=== PATIENT | female | born 1965 | race Caucasian/White ===

== ENCOUNTER 2020-12-19 12:02 | Day surgery (SDC) | payer MEDICARE ==
[~2020-12-19 12:02] MED LIST: DIPRIVAN 200 MG/20 ML IV ONE; Ketamine HCl 50 MG/ML ONE
[2020-12-19] MEDS ORDERED: Xylocaine 1% Vial 30 ML PF IJ ONE (12:03)
[2020-12-19] MEDS ORDERED: Sodium Chloride 0.9(Preservative Free) 10 ML IJ ONE (12:03)
[2020-12-19] MEDS ORDERED: Depo-Medrol 40 MG/ML IM ONE (12:03)
--- NOTE | 2020-12-19 13:32 | XRAY ---
Indication: Lumbar CHRISTIANO. Intraoperative fluoroscopy provided for 38 seconds. 2 digital spot images submitted for interpretation demonstrates midline posterior needle tip projecting just posterior to the lumbosacral interspace. Small amount of contrast injected for needle tip placement. Correlate with intraoperative findings/report.
--- NOTE | 2020-12-19 13:45 | XRAY ---
38 seconds fluoroscopy time in surgery for lumbar CHRISTIANO.
[2020-12-19] MEDS ORDERED: Lactated Ringers 1,000 ML IV ONE (16:13)
== END 2020-12-19 13:15 | disposition home or self-care (01) ==
LOC: SDC-PAIN 12:02
PROVIDERS: ATTEND Psychiatry & Neurology Pain Medicine
DX: M54.16 Radiculopathy, lumbar region (principal); J44.9 Chronic obstructive pulmonary disease, unspecified; M81.0 Age-related osteoporosis without current pathological fracture; I10 Essential (primary) hypertension; M79.7 Fibromyalgia; F41.9 Anxiety disorder, unspecified; F32.9 Major depressive disorder, single episode, unspecified; I50.9 Heart failure, unspecified; Z79.899 Other long term (current) drug therapy
CPT/HCPCS: 62323; 72100; 77003; J1030; J2001; J2704; Q9966

== ENCOUNTER 2021-04-17 13:24 | Day surgery (SDC) | payer MEDICARE ==
[2021-04-17] MEDS ORDERED: LIDOCAINE HCL 2% 100 MG/5 ML IJ ONE (13:25)
[2021-04-17] MEDS ORDERED: Depo-Medrol 40 MG/ML IM ONE (13:25)
[2021-04-17] MEDS ORDERED: DIPRIVAN 200 MG/20 ML IV ONE (14:53)
[2021-04-17] MEDS ORDERED: Lactated Ringers 1,000 ML IV ONE (15:35)
--- NOTE | 2021-04-17 16:52 | XRAY ---
Indication: Bilateral L4-S1 MBB. Intraoperative fluoroscopy provided for 14 seconds. Single digital spot image submitted for interpretation demonstrates posterior needle tips projecting over the expected left and right L4-S1 nerve roots. Correlate with intraoperative findings/report.
--- NOTE | 2021-04-17 17:10 | XRAY ---
14 seconds of fluoroscopy was used in surgery for a bilateral L4-L5 and L5-S1 MBB.
== END 2021-04-17 15:15 | disposition home or self-care (01) ==
LOC: SDC-PAIN 13:24
PROVIDERS: ATTEND Psychiatry & Neurology Pain Medicine
DX: M47.816 Spondylosis without myelopathy or radiculopathy, lumbar region (principal); Z79.899 Other long term (current) drug therapy
CPT/HCPCS: 64493; 64494; 72020; 77002; J1030; J2704